=== PATIENT | female | born 1970 | race Caucasian/White ===

== ENCOUNTER 2019-03-28 01:54 | Emergency (ER) | payer BC ==
[2019-03-28] MEDS ORDERED: Ondansetron 4 MG/2 ML SDV IVPUSH ONE (02:30)
[2019-03-28] MEDS ORDERED: Sodium Chloride 0.9% 10 ML Syringe FLUSH PRN (02:30)
[2019-03-28] MEDS ORDERED: HYDROmorphone 0.5 MG/0.5 ML Syringe IVPUSH ONE (02:30)
[2019-03-28] MEDS ORDERED: Sodium Chloride 0.9% 1,000 ML IV SCH (02:30)
--- NOTE | 2019-03-28 02:51 | EDM.PDOC ---
ED HPI GENERAL MEDICAL PROBLEM - General Chief Complaint: Abdominal Pain Stated Complaint: ABDOMINAL PAIN/DIARRHEA Time Seen by Provider: 03/28/19 02:11 Source of Information: Reports: Patient, RN Notes Reviewed - History of Present Illness INITIAL COMMENTS - FREE TEXT/NARRATIVE: 48-year-old female comes in with mid abdominal pain, cramping and frequent diarrhea. This all started about 5 or 6 hours ago shortly after eating dinner this past evening. She has had about 6 episodes of diarrhea and now she states it is mostly "bloody mucus". Some nausea but no vomiting. He is to have intermittent cramping that at times can be very severe. She's had some mild chills, no fever. No one else is currently ill at home nor has there been anyone ill recently. Is not had any antibiotics in the last month or 2. She is not eaten anything that she can think of that would be at increased risk for food poisoning. No personal history of stomach or intestinal problems. Abdominal Pain Score (Numeric/FACES): 8 - Related Data Allergies Allergy/AdvReac Type Severity Reaction Status Date / Time No Known Allergies Allergy Verified 03/28/19 02:10 Home Meds: Home Meds levoFLOXacin [Levaquin] 250 mg PO DAILY #5 tab 03/28/19 [Rx] Past Medical History - Past Health History Medical/Surgical History: Denies Medical/Surgical History Social & Family History - Family History Family Medical History: Noncontributory - Tobacco Use Smoking Status *Q: Never Smoker ED ROS GENERAL - Review of Systems Review Of Systems: See Below Constitutional: Reports: Chills. Denies: Fever HEENT: Denies: Throat Pain Respiratory: Denies: Shortness of Breath Cardiovascular: Denies: Chest Pain GI/Abdominal: Reports: Abdominal Pain, Diarrhea, Nausea. Denies: Vomiting : Reports: No Symptoms Musculoskeletal: Reports: No Symptoms Skin: Reports: No Symptoms Neurological: Reports: No Symptoms ED EXAM, GI/ABD - Physical Exam Exam: See Below General Appearance: Alert, Mild Distress Eyes: Bilateral: Normal Appearance Throat/Mouth: Normal Inspection Head: Atraumatic. No: Facial Swelling Neck: Supple, Full Range of Motion Respiratory/Chest: No Respiratory Distress, Lungs Clear, Normal Breath Sounds Cardiovascular: Regular Rate, Rhythm GI/Abdominal Exam: Tender (Mild mid abdominal tenderness, mild lower mid abdominal tenderness, upper abdomen completely nontender, right lower quadrant nontender.). No: Guarding, Rebound Extremities: Normal Inspection Neurological: Alert, Oriented, No Motor/Sensory Deficits Skin Exam: Warm, Dry, Normal Color Course - Vital Signs Last Recorded V/S: Last Vital Signs Temp 98.0 F 03/28/19 02:07 Pulse 97 03/28/19 02:07 Resp 18 03/28/19 02:07 BP 148/95 H 03/28/19 02:07 Pulse Ox 97 03/28/19 02:07 - Orders/Labs/Meds Orders: Active Orders 24 hr Category Date Time Status Peripheral IV Care [RC] . DIRECTED Care 03/28/19 02:30 Active CULTURE STOOL + SHIGATOX [RM] Stat Lab 03/28/19 02:26 Received Levofloxacin/Dextrose 5%-Water [Levaquin in D5W 500 MG/ Med 03/28/19 03:29 Active 100 ML] 500 mg Premix Bag 1 bag IV ONETIME Sodium Chloride 0.9% [Normal Saline] 1,000 ml Med 03/28/19 02:30 Active IV ONETIME Sodium Chloride 0.9% [Saline Flush] Med 03/28/19 02:30 Active 10 ml FLUSH ASDIRECTED PRN Peripheral IV Insertion Adult [OM.PC] Stat Oth 03/28/19 02:30 Ordered Medication Orders Sodium Chloride (Normal Saline) 1,000 mls @ 999 mls/hr IV ONETIME POLLO Last Admin: 03/28/19 02:42 Dose: 999 mls/hr Levofloxacin/Dextrose 500 mg/ (Premix) 100 mls @ 100 mls/hr IV ONETIME ONE Stop: 03/28/19 04:28 Last Admin: 03/28/19 03:36 Dose: 100 mls/hr Sodium Chloride (Saline Flush) 10 ml FLUSH ASDIRECTED PRN PRN Reason: Keep Vein Open Last Admin: 03/28/19 02:42 Dose: 10 ml Meds: Medications Generic Name Dose Route Start Last Admin Trade Name Freq PRN Reason Stop Dose Admin Sodium Chloride 1,000 mls @ 999 mls/hr 03/28/19 02:30 03/28/19 02:42 Normal Saline IV 999 mls/hr ONETIME POLLO Administration Levofloxacin/Dextrose 500 mg/ 100 mls @ 100 mls/hr 03/28/19 03:29 03/28/19 03 :36 Premix IV 03/28/19 04:28 100 mls/hr ONETIME ONE Administration Sodium Chloride 10 ml 03/28/19 02:30 03/28/19 02:42 Saline Flush FLUSH 10 ml ASDIRECTED PRN Administration Keep Vein Open Discontinued Medications Generic Name Dose Route Start Last Admin Trade Name Demarcusq PRN Reason Stop Dose Admin Hydromorphone HCl 0.5 mg 03/28/19 02:30 03/28/19 02:41 Dilaudid IVPUSH 03/28/19 02:31 0.5 mg ONETIME ONE Administration Ondansetron HCl 4 mg 03/28/19 02:30 03/28/19 02:41 Zofran IVPUSH 03/28/19 02:31 4 mg ONETIME ONE Administration Departure - Departure Time of Disposition: 03:50 Disposition: Home, Self-Care 01 Condition: Fair Clinical Impression: Diarrhea Qualifiers: Diarrhea type: infectious Qualified Code(s): A09 - Infectious gastroenteritis and colitis, unspecified - Discharge Information Prescriptions: levoFLOXacin [Levaquin] 250 mg PO DAILY #5 tab Instructions: Diarrhea, Adult Referrals: Neli Buclkey MD [Primary Care Provider] - Forms: ED Department Discharge Additional Instructions: Clear liquids until later today, than very careful bland diet if tolerated, otherwise continue with clear liquids until tomorrow. Avoid milk and dairy products for at least 2 days. Continue probiotic twice daily. Levaquin antibiotic 250 mg has been given IV while here in the ED. Your next dose should be later this afternoon 250 mg tablet and then continue that daily for the next 4 days. Follow-up clinic or Tuesday for recheck and also culture results from stool culture done this morning should also be available. Return to ED as needed if symptoms worsening in any way. - My Orders Last 24 Hours: My Active Orders 03/28/19 02:26 CULTURE STOOL + SHIGATOX [RM] Stat 03/28/19 02:30 Peripheral IV Care [RC] . DIRECTED Sodium Chloride 0.9% [Normal Saline] 1,000 ml IV ONETIME Sodium Chloride 0.9% [Saline Flush] 10 ml FLUSH ASDIRECTED PRN Peripheral IV Insertion Adult [OM.PC] Stat 03/28/19 03:29 Levofloxacin/Dextrose 5%-Water [Levaquin in D5W 500 MG/100 ML] 500 mg Premix Bag 1 bag IV ONETIME - Assessment/Plan Last 24 Hours: My Active Orders 03/28/19 02:26 CULTURE STOOL + SHIGATOX [RM] Stat 03/28/19 02:30 Peripheral IV Care [RC] . DIRECTED Sodium Chloride 0.9% [Normal Saline] 1,000 ml IV ONETIME Sodium Chloride 0.9% [Saline Flush] 10 ml FLUSH ASDIRECTED PRN Peripheral IV Insertion Adult [OM.PC] Stat 03/28/19 03:29 Levofloxacin/Dextrose 5%-Water [Levaquin in D5W 500 MG/100 ML] 500 mg Premix Bag 1 bag IV ONETIME
[2019-03-28] MEDS ORDERED: Levofloxacin/Dextrose 5%-Water 500 MG in Premix Bag 1 BAG IV ONE (03:29)
== END 2019-03-28 04:28 | disposition home or self-care (01) ==
LOC: JD.ED 01:54
DX: A09 Infectious gastroenteritis and colitis, unspecified (principal)
CPT/HCPCS: 87046; 87427; 89055; 96361; 96365; 96375; 99284; J1170; J1956; J2405; J7040